=== PATIENT | female | born 1955 ===

== ENCOUNTER 2018-02-13 13:42 | Emergency (ER) | payer MEDICAID, MEDICARE, OTHER ==
[2018-02-13 13:52] VITALS: RESP 18
[2018-02-13] MEDS ORDERED: Sodium Chloride 0.9% 1,000 ML IV STA (14:41)
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
[2018-02-13 16:05] LABS: BASO % 0.4 % (0.0-2.0); EOS # 1.8 K/uL (0.0-0.7); EOS % 18.9 % (0.0-4.0); LYMPH # 1.9 K/uL (1.0-4.3); LYMPH % 19.4 % (20.0-40.0); MEAN CORPUSCULAR HGB CONC 33.3 g/dL (33.0-37.0); MEAN PLATELET VOLUME 8.9 fl (7.2-11.7); MONO # 0.5 K/uL (0.0-0.8); MONO % 5.4 % (0.0-10.0); NEUT # 5.4 K/uL (1.8-7.0); NEUT % 55.9 % (50.0-75.0); NRBC % 0.1 % (0.0-0.0); RBC 5.02 Mil/uL (3.80-5.20); RED CELL DISTRIBUTION WIDTH 14.2 % (11.5-14.5); WHITE BLOOD COUNT 9.7 K/uL (4.8-10.8)
[2018-02-13 16:14] LABS: ALB/GLOB RATIO 1.2 (1.0-2.1); ALT/SGPT 20 U/L (9-52); AST/SGOT 24 U/L (14-36); BLOOD UREA NITROGEN 11 mg/dl (7-17); CALCIUM 9.6 mg/dL (8.4-10.2); GFR NON-AFRICAN AMERICAN > 60; LIPASE 803 U/L (23-300)
[2018-02-13] MEDS ORDERED: Potassium Chloride 20 mEq ER Tab PO ONE ×2 (16:40→18:27)
[2018-02-13] MEDS ORDERED: Sodium Chloride 0.9% 50 ML IV ONE (16:57)
[2018-02-13] MEDS ORDERED: Iohexol 300 100 ML IJ ONE (16:57)
--- NOTE | 2018-02-13 17:28 | US ---
Date of service: 02/13/2018 HISTORY: RUQ sono, vomiting/upper abd pain, GB/liver/aorta COMPARISON: None. TECHNIQUE: Sonographic evaluation of the right upper quadrant of the abdomen. FINDINGS: LIVER: Measures 15.2 cm in length. Patent portal vein. Portal venous flow: Hepatopetal. Unremarkable echogenicity of the liver parenchyma. No mass. No intrahepatic bile duct dilatation. GALLBLADDER: Unremarkable. No gallstones. COMMON BILE DUCT: Measures 2.0 mm. No stones. No dilatation. PANCREAS: Unremarkable as visualized. No mass. No ductal dilatation. RIGHT KIDNEY: Measures 5.3 x 11.1 cm in length. Normal echogenicity. No calculus, mass, or hydronephrosis. AORTA: No aneurysmal dilatation. IVC: Unremarkable. OTHER FINDINGS: None . IMPRESSION: No significant or acute findings to account for/ related to the clinical presentation.
--- NOTE | 2018-02-13 17:55 | ED PDOC ---
- Laboratory Results Result Diagrams: 02/13/18 15:57 02/13/18 15:57 - ECG O2 Sat by Pulse Oximetry: 98 (RA) Pulse Ox Interpretation: Normal Medical Decision Making Medical Decision Making: Time: 1700 -- Received endorsement from . Patient with abdominal pain, vomiting and elevated lipase, pending US, CT results and final ER disposition. Time: 1803 CT RESULTS FINDINGS: LOWER THORAX: No visible consolidation, pleural effusion, or pneumothorax. Small hiatal hernia/distal esophageal wall thickening. LIVER: Ill-defined wedge-shaped hypodense region involving the right hepatic lobe adjacent to the falciform ligament. Numerous too small to characterize low- density hepatic lesions, statistically likely cysts or hemangiomas. Small perihepatic ascites. GALLBLADDER AND BILE DUCTS: Unremarkable. PANCREAS: Unremarkable. SPLEEN: Small perisplenic ascites. The spleen appears unremarkable. ADRENALS: Unremarkable. KIDNEYS AND URETERS: The kidneys enhance symmetrically. No hydronephrosis or obstructing calculus id entified. Left parapelvic cysts. Tiny bilateral renal hypodensities. VASCULATURE: No aortic aneurysm. BOWEL: Stomach is nondistended. Lack of oral contrast limits evaluation for bowel pathology. Bowel loops appear within normal limits of caliber without evidence of obstruction. Colonic wall thickening most pronounced involving the right colon with adjacent inflammatory changes and fluid at the level the right colonic gutter; overall appearance consistent with colitis (i.e. Infectious, inflammatory, ischemic). The colon is under distended however mid to distal transverse and portions of the left colon also appears thick walled. APPENDIX: The appendix appears within normal limits of caliber. No secondary signs of acute appendicitis. PERITONEUM: Mild abdominal and pelvic ascites. No definite free air. LYMPH NODES: No bulky adenopathy identified. BLADDER: Thick-walled under distended urinary bladder with associated inflammatory changes. REPRODUCTIVE: Uterus is present. BONES: Degenerative changes. OTHER FINDINGS: None. IMPRESSION: Colonic wall thickening most pronounced involving the right colon with adjacent inflammatory changes and fluid at the level the right colonic gutter; overall appearance consistent with colitis (i.e. Infectious, inflammatory, ischemic). The colon is under distended however mid to distal transverse and portions of the left colon also appears thick walled. Ill-defined wedge-shaped hypodense region involving the right hepatic lobe adjacent to the falciform ligament. Numerous too small to characterize low- density hepatic lesions, statistically likely cysts or hemangiomas. Recommend further evaluation with dedicated liver protocol CT or MRI. Thick-walled under distended urinary bladder with associated inflammatory de [place] paz es. Recommend correlation with urinalysis. Cystitis is suspected. Small upper abdominal ascites. Small pelvic fluid including right pericolic gutter. Additional findings as above. Time: 1813 -- On re-evaluation, patient reports feeling better and is eager to go home. PO challenge pending. -- Discussed with Gabriele Mishra, PCP who states patient will be able to follow up with him within 24 hours for re-evaluation. Scribe Attestation: Documented by Carole Ferris, acting as a scribe Yfn Richter MD. Provider Scribe Attestation: All medical record entries made by the Scribe were at my direction and personally dictated by me. I have reviewed the chart and agree that the record accurately reflects my personal performance of the history, physical exam, medical decision making, and the department course for this patient. I have also personally directed, reviewed, and agree with the discharge instructions and disposition. Disposition - Clinical Impression Clinical Impression: Colitis - POA Present On Arrival: None - Disposition Referrals: Gabriele Mishra, DNP, [employer] [Family Provider] - (FOLLOW UP WITH GABRIELE MISHRA TOMORROW FOR REEVALUATION) Disposition: Routine/Home Disposition Time: 18:00 Condition: IMPROVED Prescriptions: Ciprofloxacin [Cipro] 1 tab PO BID #20 tab metroNIDAZOLE [Flagyl] 500 mg PO TID #30 tab Ondansetron ODT [Zofran ODT] 1 odt PO Q6 PRN #20 odt PRN Reason: Nausea/Vomiting Instructions: Acute Abdomen (Belly Pain), Adult (DC), Nausea and Vomiting, Adult (DC)
--- NOTE | 2018-02-13 18:07 | CT ---
Date of service: 02/13/2018 PROCEDURE: CT Abdomen and Pelvis with contrast HISTORY: upper abd pain, elevated lipase COMPARISON: CT abdomen and pelvis with contrast performed 05/23/14 TECHNIQUE: Contrast dose: 95 mL Omnipaque 300 Radiation dose: Total exam DLP = 739.82 mGy-cm. This CT exam was performed using one or more of the following dose reduction techniques: Automated exposure control, adjustment of the mA and/or kV according to patient size, and/or use of iterative reconstruction technique. FINDINGS: LOWER THORAX: No visible consolidation, pleural effusion, or pneumothorax. Small hiatal hernia/distal esophageal wall thickening. LIVER: Ill-defined wedge-shaped hypodense region involving the right hepatic lobe adjacent to the falciform ligament. Numerous too small to characterize low-density hepatic lesions, statistically likely cysts or hemangiomas. Small perihepatic ascites. GALLBLADDER AND BILE DUCTS: Unremarkable. PANCREAS: Unremarkable. SPLEEN: Small perisplenic ascites. The spleen appears unremarkable. ADRENALS: Unremarkable. KIDNEYS AND URETERS: The kidneys enhance symmetrically. No hydronephrosis or obstructing calculus identified. Left parapelvic cysts. Tiny bilateral renal hypodensities. VASCULATURE: No aortic aneurysm. BOWEL: Stomach is nondistended. Lack of oral contrast limits evaluation for bowel pathology. Bowel loops appear within normal limits of caliber without evidence of obstruction. Colonic wall thickening most pronounced involving the right colon with adjacent inflammatory changes and fluid at the level the right colonic gutter; overall appearance consistent with colitis (i.e. Infectious, inflammatory, ischemic). The colon is under distended however mid to distal transverse and portions of the left colon also appears thick walled. APPENDIX: The appendix appears within normal limits of caliber. No secondary signs of acute appendicitis. PERITONEUM: Mild abdominal and pelvic ascites. No definite free air. LYMPH NODES: No bulky adenopathy identified. BLADDER: Thick-walled under distended urinary bladder with associated inflammatory changes. REPRODUCTIVE: Uterus is present. BONES: Degenerative changes. OTHER FINDINGS: None. IMPRESSION: Colonic wall thickening most pronounced involving the right colon with adjacent inflammatory changes and fluid at the level the right colonic gutter; overall appearance consistent with colitis (i.e. Infectious, inflammatory, ischemic). The colon is under distended however mid to distal transverse and portions of the left colon also appears thick walled. Ill-defined wedge-shaped hypodense region involving the right hepatic lobe adjacent to the falciform ligament. Numerous too small to characterize low-density hepatic lesions, statistically likely cysts or hemangiomas. Recommend further evaluation with dedicated liver protocol CT or MRI. Thick-walled under distended urinary bladder with associated inflammatory changes. Recommend correlation with urinalysis. Cystitis is suspected. Small upper abdominal ascites. Small pelvic fluid including right pericolic gutter. Additional findings as above.
[2018-02-13 20:13] VITALS: BP 127/64; PULSE 80; TEMP 97.9
--- NOTE | 2018-02-14 09:26 | CARD ---
APPROVED REPORT Date of service: 02/13/2018 EKG Measurement Heart [id number] <Conclusion> Normal sinus rhythm Normal ECG
[2018-02-15 18:27] VITALS: O2SAT 98
== END 2018-02-13 20:12 | disposition home or self-care (01) ==
LOC: H.ER 13:42
DX: K52.9 Noninfective gastroenteritis and colitis, unspecified (principal); R18.8 Other ascites
CPT/HCPCS: 74177; 76705; 80053; 83690; 85025; 93005; 96374; 96375; 99284; J2405; J7030; Q9967